=== PATIENT | female | born 1975 | race African-American/Black ===

== ENCOUNTER 2016-09-11 22:51 | Emergency (ER) | payer OTHER ==
[~2016-09-11] VITALS: Ht 170.2 cm; Wt 90.7 kg
[~2016-09-11 22:51] MED LIST: RISP2TAB23 PO
--- NOTE | 2016-09-11 22:51 | NUR ---
PT AMBULATORY TO ER BED 12 C/O GENERALIZED BODY ACHES AND FEVER X 2 DAYS. 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 ALSO C/O POSSIBLE FOOD STUCK IN HER NOSTRIL AFTER EATING SALAD LAST NIGHT. DENIES SOB. STATES MORE OF A DISCOMFORT. PLACED ON MONITOR. NAD NOTED. AWAITING MD ALAN.
--- NOTE | 2016-09-11 23:37 | NUR ---
DR SHAFFER AT BEDSIDE FOR EVAL.
--- NOTE | 2016-09-11 23:53 | NUR ---
FLIGHT PHYSICIAN AT BEDSIDE FOR BLOOD DRAW.
[2016-09-12 00:03] LABS: BASOPHILS # (AUTO) 0.1 /CMM (0.0-0.2); EOSINOPHILS # (AUTO) 0.3 /CMM (0.0-0.7); EOSINOPHILS % (AUTO) 4.9 % (0.0-6.0); HEMATOCRIT 45 % (33-45); HEMOGLOBIN 14.7 g/dL (11.5-14.8); LYMPHOCYTES # (AUTO) 2.8 /CMM (0.8-4.8); LYMPHOCYTES % (AUTO) 40.8 % (20.0-44.0); MEAN CORPUSCULAR HEMOGLOBIN 30 PG (26.0-33.0); MEAN CORPUSCULAR HGB CONC 33 g/dl (31.0-36.0); MEAN CORPUSCULAR VOLUME 91 fL (82-100); MONOCYTES # (AUTO) 0.6 /CMM (0.1-1.30); MONOCYTES % (AUTO) 9.4 % (2.0-12.0); NEUTROPHILS % (AUTO) 43.9 % (43.0-81.0); PLATELET COUNT (AUTO) 216 /CMM (150-450); RDW COEFFICIENT OF VARIATION 13.4 (11.5-15.0); WHITE BLOOD COUNT (AUTO) 6.8 K/uL (4.3-11.0)
[2016-09-12 00:14] LABS: CREATININE 0.9 mg/dL (0.6-1.3); POTASSIUM 4.1 mmol/L (3.5-5.1)
[2016-09-12 00:19] LABS: CALCIUM, SERUM 7.9 mg/dL (8.5-10.1)
[2016-09-12 00:20] LABS: APPEARANCE,URINE SL CLOUDY (CLEAR); BILIRUBIN,URINE NEGATIVE (NEGATIVE); BLOOD, URINE NEGATIVE Ery/uL (NEGATIVE); COLOR,URINE YELLOW (YELLOW); KETONES,URINE NEGATIVE (NEGATIVE); LEUKOCYTE ESTERASE ,URINE TRACE (NEGATIVE); NITRITE, URINE NEGATIVE (NEGATIVE); PROTEIN,URINE NEGATIVE (NEGATIVE); UGLUCOSE NEGATIVE (NEGATIVE)
[2016-09-12 00:21] LABS: PREGNANCY TEST URINE QUAL NEGATIVE (NEGATIVE)
[2016-09-12 01:02] LABS: ADD URINE CULTURE YES; BACTERIA,URINE Many /HPF (None Seen); RBC,URINE NONE SEEN /HPF (0-2); SQUAMOUS EPITHELIAL CELL,UR Many /HPF (None Seen); WBC,URINE 0-2 /HPF (0-3)
--- NOTE | 2016-09-12 01:29 | NUR ---
PT LEFT WITHOUT D/C PAPERS. AWARE.
[2016-09-12 01:30] VITALS: BP 118/74
== END 2016-09-12 01:31 | disposition home or self-care (01) ==
LOC: ER 22:57
DX: B34.9 Viral infection, unspecified (principal); F32.9 Major depressive disorder, single episode, unspecified; F41.9 Anxiety disorder, unspecified; F31.9 Bipolar disorder, unspecified
CPT/HCPCS: 36415; 71010; 80048; 81001; 84703; 85025; 87086; 87804; 99285; A4606; Z7610; 81000-TC; 87400

== ENCOUNTER 2017-10-06 12:59 | Emergency (ER) | payer OTHER ==
[~2017-10-06] VITALS: Ht 170.2 cm; Wt 90.7 kg
[2017-10-06 12:59] VITALS: BP 145/102
== END 2017-10-06 14:48 | disposition home or self-care (01) ==
LOC: ER 13:00
DX: S16.1XXA Strain of muscle, fascia and tendon at neck level, initial encounter (principal); D68.0 Von Willebrand disease; F31.9 Bipolar disorder, unspecified; F41.9 Anxiety disorder, unspecified; G89.29 Other chronic pain; F10.10 Alcohol abuse, uncomplicated; F17.200 Nicotine dependence, unspecified, uncomplicated; X58.XXXA Exposure to other specified factors, initial encounter; Y93.89 Activity, other specified; Y92.89 Other specified places as the place of occurrence of the external cause; Y99.8 Other external cause status
CPT/HCPCS: 99283; 99406; A4606; Z7610